=== PATIENT | female | born 1985 | race African-American/Black ===

== ENCOUNTER 2023-12-17 20:42 | Emergency (ER) | payer SELFPAY ==
[~2023-12-17] VITALS: Ht 157.5 cm; Wt 54.4 kg
[2023-12-17 21:00] VITALS: BP_SYST 165; PULSE 148; RESP 18; TEMP 98; O2SAT 100
[2023-12-18 00:15] VITALS: BP_SYST 156; PULSE 111; RESP 20; TEMP 98.6; O2SAT 100
== END 2023-12-18 00:15 | disposition home or self-care (01) ==
LOC: SED 20:42
DX: F19.10 Other psychoactive substance abuse, uncomplicated (principal)
CPT/HCPCS: 99283